=== PATIENT | male | born 1980 | race American Indian/Alaskan Native ===

== ENCOUNTER 2018-01-02 06:42 | Emergency (ER) | payer BC ==
[2018-01-02 06:57] VITALS: BP 119/80
[2018-01-02] MEDS ORDERED: MOTRIN PO ONE (08:42)
[2018-01-02] MEDS ORDERED: BOOSTRIX IM ONE (08:42)
--- NOTE | 2018-01-02 09:01 | Emergency Department Report ---
Abscess Boil HPI - HPI Chief Complaint: Wound/Laceration Stated Complaint: ABSCESS POSTERIOR SCALP Time Seen by Provider: 01/02/18 07:32 Duration: 2 Days Location: Head Severity: Mild History: Yes Pain, No Fever, No Purulent Drainage, No Numbness, No Foreign Body , No Previous History, No Insect Bite HPI: This is a 37-year-old male nontoxic, well nourished in appearance, no acute signs of distress presents to the ED with c/o of occipital scalp swelling 2 days. Patient stated that he thinks he bit by a spider area patient denies any pus or drainage. Patient denies any headache, stiff neck, nausea, vomiting , chest pain, shortness of breath, numbness or tingling. Patient denies any allergies or significant past medical history. Patient denies being up-to-date with tetanus. Home Medications: Previous Rx's Medication Instructions Recorded Last Taken Type Cetirizine HCl [ZyrTEC] 10 mg PO QDAY #1 capsule 04/24/16 Unknown Rx Fluticasone [Flonase] 1 spray NS QDAY #1 bottle 04/24/16 Unknown Rx Acetaminophen/Codeine [Tylenol 1 tab PO Q6H PRN #15 tab 01/02/18 Unknown Rx /Codeine # 3 tab] Sulfamethoxazole/Trimethoprim 1 each PO BID #14 tablet 01/02/18 Unknown Rx [Bactrim DS TAB] Allergies/Adverse Reactions: Allergies Allergy/AdvReac Type Severity Reaction Status Date / Time No Known Allergies Allergy Unverified 04/24/16 07:53 ED Review of Systems ROS: Stated complaint: ABSCESS POSTERIOR SCALP Other details as noted in HPI Constitutional: denies: chills, fever Eyes: denies: eye pain, eye discharge, vision change ENT: denies: ear pain, throat pain Respiratory: denies: cough, shortness of breath, wheezing Cardiovascular: denies: chest pain, palpitations Endocrine: no symptoms reported Gastrointestinal: denies: abdominal pain, nausea, diarrhea Genitourinary: denies: urgency, dysuria Musculoskeletal: denies: back pain, joint swelling, arthralgia Skin: denies: rash, lesions Neurological: denies: headache, weakness, paresthesias Psychiatric: denies: anxiety, depression Hematological/Lymphatic: denies: easy bleeding, easy bruising ED Past Medical Hx - Past Medical History Previous Medical History?: No - Surgical History Past Surgical History?: No - Social History Smoking Status: Never Smoker Substance Use Type: None - Medications Home Medications: Home Medications Medication Instructions Recorded Confirmed Last Taken Type Cetirizine HCl [ZyrTEC] 10 mg PO QDAY #1 capsule 04/24/16 Unknown Rx Fluticasone [Flonase] 1 spray NS QDAY #1 bottle 04/24/16 Unknown Rx Acetaminophen/Codeine [Tylenol 1 tab PO Q6H PRN #15 tab 01/02/18 Unknown Rx /Codeine # 3 tab] Sulfamethoxazole/Trimethoprim 1 each PO BID #14 tablet 01/02/18 Unknown Rx [Bactrim DS TAB] ED Abscess Boil Physical Exam - Exam General: Vital signs noted. No distress. Alert and acting appropriately. GENERAL: The patient is a well-developed, well-nourished in no apparent distress. Patient is alert and acting appropriately for age. Alert and oriented 3, no apparent distress, normal gait, atraumatic. HEENT: Head is normocephalic and atraumatic. PERRL, Extraocular muscles are intact. Pupils are equal, round, and reactive to light and accommodation. Nares appeared normal. Mouth is well hydrated and without lesions. Mucous membranes are moist. Posterior pharynx clear of any exudate or lesions. Mouth is well hydrated and without lesions. Tonsils not erythematous or swollen. Uvula midline. Tongue elevated. Mucous members are moist. Posterior pharynx clear, no exudate or lesions. Patent airways. NECK: Supple. No carotid bruits. No lymphadenopathy or thyromegaly.nontender. No meningitic signs are noted. LUNGS: Clear to auscultation. Non labor breathing. No intercostal retractions. Symmetrical with respiration, no wheezing, no rales, or crackles. HEART: Regular rate and rhythm without murmur, rubs or gallops. No reproducible. S1, S2 present, regular rate and rhythm without murmur, no rubs, no gallops. ABDOMEN: Soft, nontender, and nondistended. Positive bowel sounds. No hepatosplenomegaly was noted. No guarding or rebound tenderness, negative epigastric bruit. Negative psoas sign, negative sanders sign, negative McBurneys sign EXTREMITIES: Without any cyanosis, clubbing, rash, lesions or edema. Peripheral pulses intact. Capillary refill less than 2 seconds. Full range of motion bilaterally. NEUROLOGIC: Cranial nerves II through XII are grossly intact. Alert and oriented x 3. Normal gait. Symmetrical strength and sensation. Reflexes 2+ throughout. Cerebellar testing normal. GCS score of 15. PSYCHIATRIC: Normal affect with no suicidal or homicidal ideations. Skin: 1 centimeter induration or fluctuance to occipital scalp region. Tender to touch. No pus or drainage. Front/Back of Body, Lg (Color): 1 - abscess Size: 1 cm Exam: Yes Tenderness, Yes Fluctuance, Yes Normal Neurologic Exam, Yes Normal Circulation, No Surrounding Cellulites/Erythema, No Lymphangitis, No Crepitation , No Heart Murmur I & D Note - I & D Note I & D Note: Under sterile field, I used Betadine to cleanse the area. I then used an 11 blade to make a 1 cm incision. About 1 mL of purulent drainage has been noted. I then used a hemostat to break the abscess formation. I then used sterile 0.9% normal saline flush to flush the wound with total volume of 40 mL used. I then put a 1/4 iodoform packing to the incision. A sterile 4 x 4 with tape has been applied as dressing. Bleeding is under control. Patient tolerated the procedure well with no signs of distress noted. ED Course Vital Signs 01/02/18 01/02/18 06:51 08:50 Temperature 98.4 F Pulse Rate 68 Respiratory 17 18 Rate Blood Pressure 119/80 O2 Sat by Pulse 99 Oximetry - Reevaluation(s) Reevaluation #1: 01/02/18 08:59 Patient is speaking in full sentences with no signs of distress noted. Critical care attestation.: If time is entered above; I have spent that time in minutes in the direct care of this critically ill patient, excluding procedure time. ED Medical Decision Making - Medical Decision Making This is a 37-year-old male that presents with folliculitis abscess. Patient is stable and was examined by me. This is incision and drainage and has been performed and patient tolerated well. A sterile dressing has been applied. Patient was educated on proper wound care. Patient is discharged with Bactrim and Tylenol with Codeine and was instructed not to operate any machinery while taking Tylenol with codeine due to drowsiness. Patient was instructed to refer to Follow-up with a primary care doctor in 3-5 days or if symptoms worsen and continue return to emergency room as soon as possible. At time of discharge, the patient does not seem toxic or ill in appearance. No acute signs of distress noted. Patient agrees to discharge treatment plan of care. No further questions noted by the patient. ED Disposition Clinical Impression: Folliculitis, Abscess, Encounter for incision and drainage procedure Disposition: TO HOME OR SELFCARE Is pt being admited?: No Does the pt Need Aspirin: No Condition: Stable Instructions: Abscess Incision and Drainage (ED), Abscess (ED), Acetaminophen/ Codeine (By mouth) Additional Instructions: Follow-up with a primary care doctor in 3-5 days or if symptoms worsen and continue return to emergency room as soon as possible. Prescriptions: Acetaminophen/Codeine [Tylenol /Codeine # 3 tab] 1 tab PO Q6H PRN #15 tab PRN Reason: Pain Sulfamethoxazole/Trimethoprim [Bactrim DS TAB] 1 each PO BID #14 tablet Referrals: PRIMARY CAREMD [Primary Care Provider] - 3-5 Days JAYESH FERNANDO MD [Staff Physician] - 3-5 Days [facility] [Outside] - 3-5 Days [facility] [Outside] - 3-5 Days Forms: Work/School Release Form(ED)
== END 2018-01-02 09:08 | disposition home or self-care (01) ==
LOC: ED 06:42
DX: L73.9 Follicular disorder, unspecified (principal); L02.811 Cutaneous abscess of head [any part, except face]
CPT/HCPCS: 90471; 90715

== ENCOUNTER 2019-01-07 08:40 | Emergency (ER) | payer BC, OTHER ==
[2019-01-07 08:48] VITALS: BP 141/80
[2019-01-07] MEDS ORDERED: IBUPROFEN PO ONE (09:00)
--- NOTE | 2019-01-07 09:15 | XRay Report ---
LUMBOSACRAL SPINE, 3 VIEWS: History: Back pain Findings: The vertebral bodies, disk spaces and posterior elements are intact. No compression deformity or malalignment. The SI joints are symmetric and unremarkable. Impression: 1. No evidence for acute injury to the lumbar spine.
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
== END 2019-01-07 09:37 | disposition home or self-care (01) ==
LOC: ED 08:40
DX: S39.012A Strain of muscle, fascia and tendon of lower back, initial encounter (principal); M25.511 Pain in right shoulder; F12.90 Cannabis use, unspecified, uncomplicated; V89.2XXA Person injured in unspecified motor-vehicle accident, traffic, initial encounter; Y93.89 Activity, other specified; Y92.488 Other paved roadways as the place of occurrence of the external cause; Y99.8 Other external cause status
CPT/HCPCS: 72100; 99283

== ENCOUNTER 2019-02-09 08:20 | Emergency (ER) | payer SELFPAY ==
[2019-02-09 08:27] VITALS: BP 144/87
[2019-02-09 08:52] LABS: Basophils % (Auto) 0.6 % (0.0-1.8); Eosinophils % (Auto) 0.1 % (0.0-4.3); Hematocrit 43.9 % (35.5-45.6); Hemoglobin 14.4 gm/dl (11.8-15.2); Lymphocytes # (Auto) 1.6 K/mm3 (1.2-5.4); Lymphocytes % (Auto) 24.1 % (13.4-35.0); Mean Corpuscular HGB Conc 33 % (32-34); Mean Corpuscular Volume 81 fl (84-94); Monocytes # (Auto) 0.8 K/mm3 (0.0-0.8); Monocytes % (Auto) 12.5 % (0.0-7.3); Platelet Count 320 K/mm3 (140-440); Red Blood Count 5.43 M/mm3 (3.65-5.03); Red Cell Distribution Width 14.2 % (13.2-15.2)
[2019-02-09] MEDS ORDERED: NACL 0.9% 1000 ML 1,000 ML IV ONE (08:52)
[2019-02-09] MEDS ORDERED: ZOFRAN IV ONE (08:52)
[2019-02-09] MEDS ORDERED: PEPCID IV ONE (08:52)
--- NOTE | 2019-02-09 08:57 | Emergency Department Report ---
HPI - General Chief Complaint: Abdominal Pain Time Seen by Provider: 02/09/19 08:43 - HPI HPI: 38-year-old -Japanese male presents to the emergency department with complaint of abdominal pain since eating food from a gas station on Saturday, 2-3 days ago. The patient says he ate some type of chicken pasta and noticed at the end of the meal that the chicken was pink inside. Since that time the patient has had abdominal pain and nausea without vomiting. He tried to eat some chicken noodle soup and taking a bite of a hamburger over the weekend but it seems to make the pain worse. He is tried some natural remedies for his symptoms without any relief. He denies any fever, diarrhea, constipation. No primary care physician. No recent travel or sick contacts at home. No past medical history. ED Past Medical Hx - Past Medical History Previous Medical History?: No - Surgical History Past Surgical History?: No - Social History Smoking Status: Current Every Day Smoker Substance Use Type: None - Medications Home Medications: Home Medications Medication Instructions Recorded Confirmed Last Taken Type Cetirizine HCl [ZyrTEC] 10 mg PO QDAY #1 capsule 04/24/16 Unknown Rx Fluticasone [Flonase] 1 spray NS QDAY #1 bottle 04/24/16 Unknown Rx Acetaminophen/Codeine [Tylenol 1 tab PO Q6H PRN #15 tab 01/02/18 Unknown Rx /Codeine # 3 tab] Sulfamethoxazole/Trimethoprim 1 each PO BID #14 tablet 01/02/18 Unknown Rx [Bactrim DS TAB] Ketorolac [Toradol] 10 mg PO Q6H PRN #12 tablet 01/07/19 Unknown Rx methOCARBAMOL [Robaxin TAB] 500 mg PO Q6H PRN #14 tablet 01/07/19 Unknown Rx Ondansetron [Zofran Odt] 4 mg PO Q8HR PRN #14 tab.rapdis 02/09/19 Unknown Rx ED Review of Systems ROS: Stated complaint: STOMACH PAIN Other details as noted in HPI Comment: All other systems reviewed and negative Constitutional: denies: chills, fever Eyes: denies: eye pain, vision change ENT: denies: ear pain, throat pain Respiratory: denies: cough, shortness of breath Cardiovascular: denies: chest pain, palpitations Gastrointestinal: abdominal pain, nausea. denies: vomiting Genitourinary: denies: dysuria, discharge Musculoskeletal: denies: back pain, arthralgia Skin: denies: rash, lesions Neurological: denies: headache, weakness Physical Exam - Physical Exam Vital Signs: Vital Signs 02/09/19 08:25 Temperature 98.1 F Pulse Rate 73 Respiratory 16 Rate Blood Pressure 144/87 O2 Sat by Pulse 98 Oximetry Physical Exam: GENERAL: The patient is well-developed well-nourished. HENT: Normocephalic. Atraumatic. Patient has moist mucous membranes. EYES: Extraocular motions are intact. NECK: Supple. Trachea is midline. CHEST/LUNGS: Clear to auscultation. There is no respiratory distress noted. HEART/CARDIOVASCULAR: Regular. There is no tachycardia. There is no murmur. ABDOMEN: Abdomen is soft. Left upper quadrant and epigastric tenderness to pa lpation. No guarding. Patient has normal bowel sounds. There is no abdominal distention. SKIN: Skin is warm and dry. NEURO: The patient is awake, alert, and oriented. The patient is cooperative. The patient has no focal neurologic deficits. The patient has normal speech. MUSCULOSKELETAL: There is no tenderness or deformity. There is no limitation range of motion. There is no evidence of acute injury. ED Course Vital Signs 02/09/19 08:25 Temperature 98.1 F Pulse Rate 73 Respiratory 16 Rate Blood Pressure 144/87 O2 Sat by Pulse 98 Oximetry ED Medical Decision Making - Lab Data Result diagrams: 02/09/19 08:39 02/09/19 08:39 - Radiology Data Radiology results: image reviewed interpreted by me: Abdominal x-ray shows nonspecific nonobstructive bowel gas - Medical Decision Making This patient presents to the emergency department with a 2 to three-day history of some abdominal pain and some nausea without vomiting after eating some questionable food from a gas station. On examination he does not appear in any acute distress. Abdomen is soft, nondistended and nontoxic in appearance. The patient's labs have been mostly unremarkable. Abdominal x-ray shows nonspecific nonobstructive bowel gas. The patient was given IV fluid resuscitation, an antacid and antinausea medication. Upon reevaluation, he is feeling greatly improved. He was able to pass an oral challenge without any further nausea or increased abdominal discomfort. Vital signs stable throughout his ED course. For all these reasons, the patient appears safe for discharge home at this time. He will follow up with primary care and will return to the ER with any worsenin g of his symptoms or any acute distress. - Differential Diagnosis poisoning, gastroenteritis, colitis, diverticulitis Critical Care Time: No Critical care attestation.: If time is entered above; I have spent that time in minutes in the direct care of this critically ill patient, excluding procedure time. ED Disposition Clinical Impression: Nausea Abdominal pain Qualifiers: Abdominal location: generalized Qualified Code(s): R10.84 - Generalized abdominal pain Disposition: DC- TO HOME OR SELFCARE Is pt being admited?: No Condition: Stable Instructions: Acute Nausea and Vomiting (ED), Abdominal Pain (ED) Additional Instructions: Please follow up with a primary care physician in the next few days. Return to the emergency Department with any worsening of your symptoms or any acute distress. Prescriptions: Ondansetron [Zofran Odt] 4 mg PO Q8HR PRN #14 tab.rapdis PRN Reason: Nausea Referrals: BRYANT HADLEY MD [Staff Physician] - 3-5 Days [facility] [Outside] - 3-5 Days Time of Disposition: 13:00
[2019-02-09 09:09] LABS: Bilirubin,Urine NEG (Negative); Blood,Urine LG (Negative); Color,Urine Yellow (Yellow); Mucus,Urine 3+ /HPF; Urobilinogen,Urine < 2.0 mg/dL (<2.0)
[2019-02-09 09:21] LABS: Alanine Aminotransferase 16 units/L (7-56); Albumin 4.3 g/dL (3.9-5); BUN/Creatinine Ratio 9; Blood Urea Nitrogen 9 mg/dL (9-20); Calcium 9.9 mg/dL (8.4-10.2); Hemolysis Index 14
--- NOTE | 2019-02-09 10:16 | XRay Report ---
ABDOMEN 2 VIEW(S) INDICATION / CLINICAL INFORMATION: Abdominal pain for 3 days. COMPARISON: None available. FINDINGS: TUBES / LINES: None. BOWEL GAS PATTERN: No significant abnormality. FREE AIR / EXTRALUMINAL GAS: None seen. ADDITIONAL FINDINGS: No significant additional findings. IMPRESSION: 1. No significant abnormality. Signer Name: Uche Yarbrough Jr, MD Signed: 02/09/2019 10:12 AM Workstation Name: [id number]
== END 2019-02-09 11:30 | disposition home or self-care (01) ==
LOC: ED 08:20
DX: R10.84 Generalized abdominal pain (principal); R11.0 Nausea; F17.200 Nicotine dependence, unspecified, uncomplicated; Z79.899 Other long term (current) drug therapy
CPT/HCPCS: 36415; 74019; 80053; 81001; 83690; 85025; 96374; 96375; 99284; J2405; J7030

== ENCOUNTER 2021-07-07 08:46 | Emergency (ER) | payer BC ==
[2021-07-07 08:52] VITALS: BP 145/79
--- NOTE | 2021-07-07 09:21 | Emergency Department Report ---
ED ENT HPI - General Chief complaint: Earache Stated complaint: EAR AND FINGER PAIN Time Seen by Provider: 07/07/21 09:07 Source: patient (Patient drove to the ER) Mode of arrival: Ambulatory Limitations: No Limitations - History of Present Illness Initial comments: 40-year-old obese -[place] man presents to the emergency room for 6 to 8-month intermittent ear irritation and dizziness. Patient states he had a history of this in the past. Patient states at times he feels like the room is spinning. He denies any nausea vomiting fever chills. Patient states he is fully vaccinated for Covid. Patient reports his eyes get blurry when he tries to read things close up. But has not had his eyes examined in many many years. Onset/Timin -: month(s) Location: L ear Severity: mild Severity scale (0 -10): 0 Consistency: intermittent Improves with: none Worsens with: none - Related Data Previous Rx's Medication Instructions Recorded Last Taken Type Cetirizine HCl [ZyrTEC] 10 mg PO QDAY #1 capsule 04/24/16 Unknown Rx Fluticasone [Flonase] 1 spray NS QDAY #1 bottle 04/24/16 Unknown Rx Acetaminophen/Codeine [Tylenol 1 tab PO Q6H PRN #15 tab 01/02/18 Unknown Rx /Codeine # 3 tab] Sulfamethoxazole/Trimethoprim 1 each PO BID #14 tablet 01/02/18 Unknown Rx [Bactrim DS TAB] Ketorolac [Toradol] 10 mg PO Q6H PRN #12 tablet 01/07/19 Unknown Rx methOCARBAMOL [Robaxin TAB] 500 mg PO Q6H PRN #14 tablet 01/07/19 Unknown Rx Ondansetron [Zofran Odt] 4 mg PO Q8HR PRN #14 tab.rapdis 02/09/19 Unknown Rx Allergies Allergy/AdvReac Type Severity Reaction Status Date / Time No Known Allergies Allergy Unverified 04/24/16 07:53 ED Dental HPI - General Chief complaint: Earache Stated complaint: EAR AND FINGER PAIN Time Seen by Provider: 07/07/21 09:07 Source: patient Mode of arrival: Ambulatory Limitations: No Limitations - Related Data Previous Rx's Medication Instructions Recorded Last Taken Type Cetirizine HCl [ZyrTEC] 10 mg PO QDAY #1 capsule 04/24/16 Unknown Rx Fluticasone [Flonase] 1 spray NS QDAY #1 bottle 04/24/16 Unknown Rx Acetaminophen/Codeine [Tylenol 1 tab PO Q6H PRN #15 tab 01/02/18 Unknown Rx /Codeine # 3 tab] Sulfamethoxazole/Trimethoprim 1 each PO BID #14 tablet 01/02/18 Unknown Rx [Bactrim DS TAB] Ketorolac [Toradol] 10 mg PO Q6H PRN #12 tablet 01/07/19 Unknown Rx methOCARBAMOL [Robaxin TAB] 500 mg PO Q6H PRN #14 tablet 01/07/19 Unknown Rx Ondansetron [Zofran Odt] 4 mg PO Q8HR PRN #14 tab.rapdis 02/09/19 Unknown Rx Allergies Allergy/AdvReac Type Severity Reaction Status Date / Time No Known Allergies Allergy Unverified 04/24/16 07:53 ED Review of Systems ROS: Stated complaint: EAR AND FINGER PAIN Other details as noted in HPI Comment: All other systems reviewed and negative ED Past Medical Hx - Social History Smoking Status: Current Every Day Smoker Substance Use Type: None - Medications Home Medications: Home Medications Medication Instructions Recorded Confirmed Last Taken Type Cetirizine HCl [ZyrTEC] 10 mg PO QDAY #1 capsule 04/24/16 Unknown Rx Fluticasone [Flonase] 1 spray NS QDAY #1 bottle 04/24/16 Unknown Rx Acetaminophen/Codeine [Tylenol 1 tab PO Q6H PRN #15 tab 01/02/18 Unknown Rx /Codeine # 3 tab] Sulfamethoxazole/Trimethoprim 1 each PO BID #14 tablet 01/02/18 Unknown Rx [Bactrim DS TAB] Ketorolac [Toradol] 10 mg PO Q6H PRN #12 tablet 01/07/19 Unknown Rx methOCARBAMOL [Robaxin TAB] 500 mg PO Q6H PRN #14 tablet 01/07/19 Unknown Rx Ondansetron [Zofran Odt] 4 mg PO Q8HR PRN #14 tab.rapdis 02/09/19 Unknown Rx ED Physical Exam - General Limitations: No Limitations General appearance: alert, in no apparent distress - Head Head exam: Present: atraumatic, normocephalic - Eye Eye exam: Present: normal appearance - ENT ENT exam: Present: TM's normal bilaterally, normal external ear exam - Neck Neck exam: Present: normal inspection, full ROM - Respiratory Respiratory exam: Absent: respiratory distress, accessory muscle use - Cardiovascular Cardiovascular Exam: Present: regular rate - Back Exam Back exam: Present: normal inspection, full ROM - Neurological Exam Neurological exam: Present: alert, oriented X3, normal gait - Psychiatric Psychiatric exam: Present: normal affect, normal mood - Skin Skin exam: Present: warm, dry, intact, normal color. Absent: rash ED Course Vital Signs 07/07/21 08:48 Temperature 98.4 F Pulse Rate 65 Respiratory 16 Rate Blood Pressure 145/79 [Right] O2 Sat by Pulse 99 Oximetry ED Medical Decision Making - Medical Decision Making 40-year-old obese -[place] man presents to the emergency room for 6 to 8-month intermittent ear irritation and dizziness. Patient states he had a history of this in the past. Patient states at times he feels like the room is spinning. He denies any nausea vomiting fever chills. Patient states he is fully vaccinated for Covid. Patient reports his eyes get blurry when he tries to read things close up. But has not had his eyes examined in many many years. Recommend to follow-up with her ear nose and throat provider as this has been chronic for the last 8 months. On examination is within normal limits. Critical care attestation.: If time is entered above; I have spent that time in minutes in the direct care of this critically ill patient, excluding procedure time. ED Disposition Clinical Impression: Discomfort of left ear, Dizziness, nonspecific Disposition: 01 HOME / SELF CARE / HOMELESS Is pt being admited?: No Does the pt Need Aspirin: No Condition: Stable Instructions: Dizziness, [id number] Additional Instructions: Is very important you follow-up with your primary care provider and her ear nose and throat provider. Referrals: RODOLFO KIM MD [Staff Physician] - 3-5 Days QUINCY HUMPHRIES MD [Referring] - 3-5 Days Forms: Work/School Release Form(ED) Time of Disposition: 09:31
== END 2021-07-07 10:15 | disposition home or self-care (01) ==
LOC: ED 08:46
DX: H92.02 Otalgia, left ear (principal); R42 Dizziness and giddiness; F17.200 Nicotine dependence, unspecified, uncomplicated
CPT/HCPCS: 99281